=== PATIENT | female | born 1930 | race Caucasian/White ===

== ENCOUNTER 2018-11-29 09:33 | Emergency (ER) | payer MEDICARE, OTHER ==
[~2018-11-29] VITALS: Ht 162.6 cm; Wt 59.0 kg
[~2018-11-29 09:33] MED LIST: ACHD5005 PO; B/P PILL; METFORMIN; OMG1KC PO; VIT D
[2018-11-29] MEDS ORDERED: CHLO473M4 MM (11:25)
--- NOTE | 2018-11-29 11:25 | ED EENT ---
History of Present Illness General Chief Complaint: Oral/Throat Problems Stated Complaint: BUMPS ON INSIDE OF MOUTH Source: patient Exam Limitations: no limitations History of Present Illness Date Seen by Provider: Nov 29, 2018 Time Seen by Provider: 11:20 Initial Comments To ER with "bumps" to the left cheek first noticed yesterday. No known cause but states that she did eat some hot fish 2 days ago and she might have burned it but she doesn't recall that. They're not painful she is just worried about it getting infected Timing/Duration: other (2 days ago) Severity: moderate Location: mouth Associated Symptoms: denies symptoms Allergies and Home Medications Allergies Coded Allergies: No Known Drug Allergies (Unverified , 11/30/11) Home Medications Hydrocodone Bit/Acetaminophen 1 Tab Tablet, 1 TAB PO Q6H FOR PAIN Prescribed by: SIDNEY JAMES on 11/30/112135 [place] 3 Polyunsat Fatty Acids 1,000 Mg Cap, 1,000 MG PO BID, (Reported) Patient Home Medication List Home Medication List Reviewed: Yes Review of Systems Review of Systems Constitutional: see HPI Eyes: No Symptoms Reported Ears: No Symptoms Reported Nose: no symptoms reported Mouth: see HPI Throat: no symptoms reported Respiratory: no symptoms reported Cardiovascular: no symptoms reported Musculoskeletal: no symptoms reported Skin: no symptoms reported Neurological: No Symptoms Reported Past Ninmrrw-Idfict-Ypntyh Hx Patient Social History Recent Foreign Travel: No Contact w/Someone Who Travel: No Immunizations Up To Date Date of Influenza Vaccine: Jul 31, 2011 Physical Exam Height, Weight, BMI Height: '" Weight: lbs. oz. kg; BMI Method: General Appearance: WD/WN, no apparent distress Eyes: bilateral eye normal inspection, bilateral eye PERRL, bilateral eye EOMI Ears: bilateral ear auricle normal, bilateral ear canal normal, bilateral ear TM normal Mouth/Throat: other (vocal mucosa left cheek there is a 1 x 1 cm area of thickened macerated-appearing tissue. Differential would include an injury from having bitten this area, she states that she did eat some fish yesterday that was very hot and perhaps she burned, and oral cancer would also be a possibility. There is no swelling to the cheek and I do not have concerns about parotitis or sialolithiasis) Neck: non-tender, full range of motion Respiratory: normal breath sounds, no respiratory distress, no accessory muscle use Neurologic/Psychiatric: alert, normal mood/affect, oriented x 3 Departure Impression Primary Impression: Oral mucosal lesion Disposition: HOME, SELF-CARE Condition: Stable Departure-Patient Inst. Decision time for Depature: 11:23 Referrals: HARRISON ROSEN DO (PCP/Family) Primary Care Physician Patient Instructions: General (DC) Add. Discharge Instructions: 1. Call your dentist on Saturday to make an appointment to be seen for follow-up. If this does not improve and go away then he will need to have this biopsied to make sure this is not an oral cancer. In the meantime, use the antiseptic mouthwash. I tried to call [facility] pharmacy that they are closed on the weekends. So , I sent your prescription to [facility] where you can pick it up this weekend. All discharge instructions reviewed with patient and/or family. Voiced understanding. Scripts Chlorhexidine Gluconate (Peridex) 473 Ml Mouthwash 30 ML MM BID, #473 ML Prov: BRAYEDN GOLD APRN 11/29/18 Copy Copies To 1: HARRISON ROSEN PETER J APRN Nov 29, 2018 11:25
[2018-11-29 11:35] VITALS: BP 146/95
--- OUTSIDE RECORDS SUMMARY | 2018-11-30 12:34 | XMS REPORT | Clinical Summary ---
Author Author User, [employer] Organization [facility] [place] Address Unknown Phone Unavailable Allergies, Adverse Reactions, Alerts Allergy Name Reaction Description Start Date Severity Status Provider No Known Allergies [place] Conditions or Problems Problem Name Problem Code Onset Date Status Entry Date Provider Comment Standard Description Annotate HYPERCHOLESTEROLEMIA 272.0 Active Altagracia Curtis Pure hypercholesterolemia diet-controlled HYPERTENSION 401.1 Active Altagracia Curtis Benign essential hypertension OBESITY 278.00 Resolved Altagracia Curtis Obesity, unspecified DIABETES MELLITUS, TYPE II, CONTROLLED 250.00 Active Altagracia Curtis Diabetes mellitus without mention of complication, type II or unspecified type, not stated as uncontrolled diet-controlled CATARACT EXTRACTIONS, BILATERAL, HX OF V45.61 Resolved Altagracia Curtis Postsurgical cataract extraction status URTICARIA, CHRONIC 708.8 Resolved Altagracia Curtis Other specified urticaria COUGH 786.2 Resolved Altagracia Curtis Cough RHINITIS 472.0 Resolved Altagracia Curtis Chronic rhinitis OTORRHEA NEC 388.69 Resolved Altagracia Curtis Other otorrhea EAR PAIN, BILATERAL 388.70 Resolved Altagracia Curtis Otalgia, unspecified OTITIS EXTERNA 380.10 Resolved Altagracia Curtis Infective otitis externa, unspecified CELLULITIS 682.9 Resolved Altagracia Curtis Cellulitis and abscess of unspecified sites mons pubis DERMATOPHYTOSIS, SITE NOS 110.9 Resolved Altagracia Curtis Dermatophytosis of unspecified site BREAST PAIN, RIGHT 611.71 Resolved Altagracia Curtis Mastodynia SLEEP APNEA, OBSTRUCTIVE 780.57 Active Altagracia Curtis Unspecified sleep apnea BRONCHITIS 490 Resolved Altagracia Curtis Bronchitis, not specified as acute or chronic SINUSITIS, ACUTE SPHENOIDAL 461.3 Resolved Altagracia Curtis Acute sphenoidal sinusitis PYELONEPHRITIS 590.80 Resolved Altagracia Curtis Pyelonephritis, unspecified VAGINITIS, ATROPHIC 627.3 Resolved Altagracia Curtis Postmenopausal atrophic vaginitis UNSPECIFIED VITAMIN D DEFICIENCY 268.9 Active Altagracia Curtis Unspecified vitamin D deficiency Medication List Medication Instructions Start Date Stop Date Generic Name NDC Status Provider Patient Instruction YUE 60 MG CAPS 1 PO daily ORLISTAT 12344554336 Active Altagracia Curtis DIALYVITE VITAMIN D 5000 5000 UNIT CAPS 1 po BID CHOLECALCIFEROL 16951000309 Active Altagracia Curtis TRIAMCINOLONE ACETONIDE 0.1 % CREA apply BID TRIAMCINOLONE ACETONIDE (TOP) 28585826848 Active Altagracia Curtis KENALOG 0.1 % CREA apply to affected areas BID TRIAMCINOLONE ACETONIDE No Longer Active Altagracia Curtis KENALOG 0.1 % CREA apply sparingly to affected areas on skin as needed. 08/14 TRIAMCINOLONE ACETONIDE No Longer Active Altagracia Curtis PREMARIN 0.625 MG/GM CREA Apply as directed. ESTROGENS, CONJUGATED VAGINAL 84089569606 Active Altagracia Curtis VITAMIN D (ERGOCALCIFEROL) 5000 UNIT CAPS (ERGOCALCIFEROL) 1 PO BID VITAMIN D (ERGOCALCIFEROL) 5000 UNIT CAPS (ERGOCALCIFEROL) No Longer Active Altagraciaerich Curtis BIOTIN FORTE TABS BIOTIN TABS 74145819554 No Longer Active Altagracia Gretchen Curtis CLARITIN 10 MG TABS 1 po BID prn LORATADINE 45565288531 Active Altagracia Gretchen Curtis ZOSTAVAX 89060 UNT/0.65ML SOLR 1 injection once ZOSTER VACCINE LIVE 50460168576 No Longer Active Altagracia Gretchen Curtis VITAMIN D (ERGOCALCIFEROL) 22068 UNIT CAPS 1 PO daily ERGOCALCIFEROL 28094516722 No Longer Active Altagraciaerich Curtis VITAMIN D 1000 UNIT TABS 1 PO TID CHOLECALCIFEROL 42598143674 No Longer Active Altagraciaerich Curtis SULFACETAMIDE-PREDNISOLONE 10-0.23 % SOLN Apply as directed as needed SULFACETAMIDE-PREDNISOLONE 86904748083 No Longer Active Altagracia Gretchen Curtis QUALAQUIN 324 MG CAPS 1 PO QHS prn QUININE SULFATE 50088471588 Active Altagracia Gretchen Curtis PREMARIN 0.625 MG/GM CREA 1 gm intavaginally HS 3 times a week. ESTROGENS, CONJUGATED VAGINAL 62561897631 No Longer Active Altagraciaerich Curtis FISH OIL 1000 MG CAPS 1 PO BID OMEGA-3 FATTY ACIDS 98599333619 Active Altagracia Gretchen Curtis LUCIEN 180 MG TABS 1 PO QD for sinus drainage FEXOFENADINE HCL 94922017976 No Longer Active Altagracia Gretchen Curtis YUE 1 PO TID YUE No Longer Active Altagraciaerich Curtis AMOXICILLIN 500 MG CAP 1 PO TID for seven days AMOXICILLIN 71348885740 No Longer Active Altagracia Gretchen Curtis QUININE SULFATE 260 MG TABS 1 PO QHS prn QUININE SULFATE 65228093783 No Longer Active Altagracia Gretchen Curtis ROBITUSSIN A-C 10-100 MG/5ML SYRUP 5cc PO Q 4-6 hr prn ROBITUSSIN A-C 10-100 MG/5ML SYRUP 16393280684 No Longer Active Altagracia Gretchen Curtis ZITHROMAX Z-DOMINIC 250 MG TABS as directed AZITHROMYCIN 02442287638 No Longer Active Altagracia Gretchen Curtis NAFTIN 1 % CREA APPLY TO AFFECTED AREAS BID FOR 7 DAYS NAFTIFINE HCL 06780555282 No Longer Active Altagracia Gretchen Curtis METFORMIN HCL 500 MG TABS 1 PO daily in morning for diabetes METFORMIN HCL 79405862297 Active Altagracia Gretchen Curtis LOTRISONE 1-0.05 % CREA apply to affected areas under arms BID for 7 days CLOTRIMAZOLE-BETAMETHASONE 32847202463 No Longer Active Altagracia Gretchen Curtis ATROVENT 0.03 % SOLN 2 puffs BID IPRATROPIUM BROMIDE 86343512534 No Longer Active Altagracia Gretchen Curtis HYDROXYZINE HCL 25 MG/ML SOLN 1 tab po prn HYDROXYZINE HCL 47204063653 No Longer Active Altagracia Gretchen Curtis MULTIVITAMINS TABS 1 po daily MULTIPLE VITAMIN 42374838168 No Longer Active Altagracia Gretchen Curtis HYDROCHLOROTHIAZIDE 12.5 MG CAPS 1 PO QD HYDROCHLOROTHIAZIDE 57463265879 Active Altagracia Gretchen Curtis NORVASC 5 MG TAB 1 PO QD AMLODIPINE BESYLATE 18031911857 No Longer Active Altagracia Gretchen Curtis CHLORPHENIRAMINE MALEATE 4 MG TABS 1 po q 4-6h prn CHLORPHENIRAMINE MALEATE 03455177961 No Longer Active Altagracia Gretchen Curtis ZITHROMAX Z-DOMINIC 250 MG TABS 2 po X 1 day, 1 po X 4 days AZITHROMYCIN 36795125849 No Longer Active Altagracia Gretchen Curtis ASPIRIN 81 MG TAB 1 PO daily ASPIRIN 11251209362 Active Altagraciaerich Curtis ZITHROMAX Z-DOMINIC 250 MG TABS 1 PO QD AZITHROMYCIN 48448791783 No Longer Active Altagracia Gretchen Curtis KENALOG 0.1 % CREA Apply to outside of ears sparingly bid x 7days TRIAMCINOLONE ACETONIDE (TOP) 93431038708 No Longer Active Altagraciaerich Curtis ALLERGY MEDICINE COMPLETE 25 MG CAPS prn DIPHENHYDRAMINE HCL 40818303196 No Longer Active Altagraciaerich Curtis NAPROXEN SODIUM 220 MG TABS 2 tabs prn NAPROXEN SODIUM 64756173585 No Longer Active Altagraciaerich Curtis PEDIOTIC 3.5-58254-0 SUSP Apply tid to bilateral ears x 7days [id number] (OTIC) 55610180184 No Longer Active Altagraciaerich Curtis COLACE ADULT 3 GM SUPP 3 gtts. each ear BID starting 06-19-04 GLYCERIN (LAXATIVE) 68126566200 No Longer Active Altagracia Curtis ATROVENT 0.03 % SOLUTION 2 puffs Qnostril BID prn runny nose 2003 IPRATROPIUM BROMIDE 63554550606 No Longer Active Altagraciaerich Curtis LOTRIMIN AF 1 % SOLN 2 drops each ear TID, alternate with pediotic drops. CLOTRIMAZOLE 05324995295 No Longer Active Altagraciaerich Curtis FLOXIN OTIC 0.3 % SOLN 10 drops BL ears BID OFLOXACIN 17086544618 No Longer Active Altagraciaerich Curtis LIPITOR 20 MG TABS 1 po daily ATORVASTATIN CALCIUM 91857659237 Active Altagracia Gretchen Curtis ROBITUSSIN A-C 10-100 MG/5ML SYRUP 5cc PO Q 4-6 hr prn ROBITUSSIN A-C 10-100 MG/5ML SYRUP 97880745019 No Longer Active Altagracia Curtis LIPITOR 20 MG TAB 1 PO QD ATORVASTATIN CALCIUM 20937020789 No Longer Active Altagracia Curtis ROBITUSSIN A-C 10-100 MG/5ML SYRUP 5cc PO Q 4-6 hr prn ROBITUSSIN A-C 10-100 MG/5ML SYRUP 53945307392 No Longer Active Altagracia Curtis LISINOPRIL 20 MG TABS 1 po daily LISINOPRIL 94861151534 Active Altagracia Godinez Curtis Immunizations Vaccine Administration Date Value Standard Description Influenza vaccine given done influenza virus vaccine, unspecified formulation Influenza vaccine given done influenza virus vaccine, unspecified formulation Influenza vaccine given Done influenza virus vaccine, unspecified formulation dT (Diphtheria and Tetanus) booster given 04/07 Td(adult) unspecified formulation Influenza vaccine given administered influenza virus vaccine, unspecified formulation pneumococcal immunization administered 2002 pneumococcal polysaccharide vaccine, 23 valent Comvax, combined Hemophilus influenza B and Hepatitis B virus vaccine [facility] 07/11/06 Haemophilus influenzae type b conjugate and Hepatitis B vaccine Vital Signs Date Name Value Unit Range Description blood pressure, diastolic - 8462-4 60 mm[Hg] BP thomas blood pressure, systolic - 8480-6 108 mm[Hg] BP sys pulse rate E&M - 8867-4 68 /min Heart rate respiratory rate E&M - 9279-1 14 /min Resp rate weight E&M - 3141-9 141 [lb_av] Weight Measured blood pressure, diastolic - 8462-4 60 mm[Hg] BP thomas blood pressure, systolic - 8480-6 110 mm[Hg] BP sys pulse rate E&M - 8867-4 80 /min Heart rate respiratory rate E&M - 9279-1 14 /min Resp rate weight E&M - 3141-9 145 [lb_av] Weight Measured Diagnostic Results Date Name Value Unit Range Description Clinical Lists Update: CBC,CMP,FLP,HGA1C - Chemistry Estimated Glomerular Filtration Rate (calc) 53.0 mL/min/1.73m2 albumin, serum 4.0 g/dL alkaline phosphatase, serum 59 U/L urea nitrogen, blood 19 mg/dL calcium, serum 9.5 mg/dL chloride, serum 105 mmol/L cholesterol, serum 109 mg/dL carbon dioxide, venous blood 25 mmol/L creatinine, serum 1.17 mg/dL HDL cholesterol, serum 75 mg/dL hemoglobin A1C, blood, as % of total hemoglobin 5.6 % LDL cholesterol, serum 34 mg/dL potassium, serum 4.1 mmol/L protein, total, serum 6.3 g/dL aspartate aminotransferase (SGOT), serum 17 U/L alanine aminotransferase (SGPT), serum 10 U/L bilirubin, serum, total 0.4 mg/dL triglyceride, serum, fasting 119 mg/dL sodium, serum 134 mmol/L anion gap, serum 4 cholesterol/HDL ratio, serum, percent 3.21 glucose, plasma fasting 96 mg/dL Clinical Lists Update: CBC,CMP,FLP,TSH,HgA1c - Chemistry LDL cholesterol, serum 69 mg/dL Estimated Glomerular Filtration Rate (calc) 57.0 mL/min/1.73m2 cholesterol, serum 133 mg/dL potassium, serum 4.1 mmol/L alkaline phosphatase, serum 81 U/L protein, total, serum 6.8 g/dL carbon dioxide, venous blood 27 mmol/L aspartate aminotransferase (SGOT), serum 16 U/L calcium, serum 9.9 mg/dL alanine aminotransferase (SGPT), serum 13 U/L creatinine, serum 1.11 mg/dL bilirubin, serum, total 0.4 mg/dL albumin, serum 4.3 g/dL triglyceride, serum, fasting 121 mg/dL HDL cholesterol, serum 40 mg/dL sodium, serum 139 mmol/L chloride, serum 106 mmol/L anion gap, serum 6 hemoglobin A1C, blood, as % of total hemoglobin 5.6 % cholesterol/HDL ratio, serum, percent 3.33 thyroid stimulating hormone, serum 2.422 u[iU]/mL glucose, plasma fasting 103 mg/dL urea nitrogen, blood 19 mg/dL Clinical Lists Update: CBC,CMP,FLP,TSH,HgA1c - Urinalysis microalbumin, urine, semiquantitative 4.3 mg/dL Lab Report: A1C HPLC - Chemistry hemoglobin A1C, blood, as % of total hemoglobin 5.6 % 4.0-5.6 hemoglobin A1C, blood, as % of total hemoglobin 5.6 % 4.0-5.6 Lab Report: CBC - Chemistry lymphocytes, absolute, manual 1.49 10E9/L {Cells}/uL 1.00-4.00 polymorphonuclear neutrophils, absolute, manual 4.02 10E9/L { Cells}/uL 1.80-7.80 mean corpuscular hemoglobin concentration, rbc 33.4 g/dL 30.9- 34.7 monocytes, absolute, manual 0.50 10E9/L {Cells}/uL 0.20-1.00 basophils, absolute, manual 0.03 10E9/L {Cells}/uL 0.00-0.20 eosinophils, absolute, manual 0.25 10E9/L {Cells}/uL 0.00-0.45 Lab Report: CBC - Hematology hemoglobin, blood 12.2 g/dL 11.6-15.9 mean corpuscular volume, RBC 90.8 fL 83.2-100.5 eosinophils as percent of blood leukocytes 4.0 % mean corpuscular hemoglobin, RBC 30.3 pg 26.8-33.3 monocytes as percent of blood leukocytes 8.0 % hematocrit, blood 36.5 % 35.7-47.8 lymphocytes as percent of blood leukocytes, manual count 23.7 % neutrophil count, CSF 63.8 % basophils as percent of blood leukocytes, automated count 0.5 % platelet count 215 047-785 0982/09/09 mean platelet volume 11.0 fL 9.5-12.9 Lab Report: CHEM 14 - Chemistry aspartate aminotransferase (SGOT), serum 17 U/L 0-40 potassium, serum 4.1 mmol/L 3.5-5.5 potassium, serum 4.1 mmol/L 3.5-5.5 protein total, urine 6.8 GM/DL 6.1-8.2 calcium, serum 9.9 mg/dL 8.5-10.5 calcium, serum 9.5 mg/dL 8.5-10.5 urea nitrogen, blood 19 mg/dL 5- urea nitrogen, blood 19 mg/dL 5- blood glucose, random 103 mg/dL 70-100 blood glucose, random 96 mg/dL 70-100 alkaline phosphatase, serum 81 U/L 40-132 alkaline phosphatase, serum 59 U/L 40-132 albumin, serum 4.3 g/dL 3.7-4.7 albumin, serum 4.0 g/dL 3.7-4.7 aspartate aminotransferase (SGOT), serum 16 U/L 0-40 alanine aminotransferase (SGPT), serum 10 U/L 0-30 alanine aminotransferase (SGPT), serum 13 U/L 0-30 bilirubin, serum, total 0.4 mg/dL 0.1-1.0 bilirubin, serum, total 0.4 mg/dL 0.1-1.0 sodium, serum 134 mmol/L 470-122 3859/09/09 sodium, serum 139 mmol/L 091-403 5140/03/13 chloride, blood 105 mmol/L 96-108 chloride, blood 106 mmol/L 96-108 protein total, urine 6.3 GM/DL 6.1-8.2 bicarbonate, serum 27 mmol/L 18-30 bicarbonate, serum 25 mmol/L 18-30 Lab Report: CHEM 14 - Lab CREATININE 1.11 0.50-1.50 CREATININE 1.17 0.50-1.50 Lab Report: LIPID GRP - Chemistry HDL cholesterol, serum 40 mg/dL 40-125 cholesterol, serum 109 mg/dL 392-693 1190/09/09 cholesterol, serum 133 mg/dL 659-525 5447/03/13 HDL cholesterol, serum 34 mg/dL 40-125 triglyceride, serum, random 121 mg/dL 30-150 triglyceride, serum, random 119 mg/dL 30-150 Lab Report: MICRALUR - Chemistry creatinine, 24 hr specimen, urine 60 mg/dL Lab Report: MICRALUR - Urinalysis microalbumin, random, urine 4.3 ug/mL 0.0-20.0 microalbumin/creatinine ratio, urine 7.3 MG/GCR mg/g 0.0-24.9 Lab Report: TSH - Chemistry thyroid stimulating hormone, serum 2.422 u[iU]/mL 0.300-5.000 Encounters Code Encounter Date Provider Facility CPT-50161 Ofc Vst, Est Level III 17:22:43 HAKANT Altagracia Curtis DO, FACP CPT-31546 Ofc Vst, Est Level III 21:06:52 CDT Altagracia Gretchen Hidalgo Curtis, DO, FACP CPT-29677 Ofc Vst, Est Level III 13:18:20 CDT Altagracia Gretchen Hidalgo Curtis, DO, FACP CPT-60895 Ofc Vst, Est Level IV 10:24:29 [employer]ADDLE [employer] [place] Gretchen Hidalgo Curtis, DO, FACP CPT-14106 Ofc Vst, Est Level IV 10:26:18 CDT Altagracia Gretchen Hidalgo Kirsten, DO, FACP CPT-18213 Ofc Vst, Est Level IV 10:35:37 CDT Altagracia Hidalgo Kirsten, DO, FACP CPT-93878 Ofc Vst, Est Level IV 10:04:20 SADDLE MAKER Altagraciaerich Hidalgo Kirsten, DO, FACP CPT-97923 Ofc Vst, Est Level III 10:53:00 CDT Altagracia Gretchen Hidalgo Kirsten, DO, FACP CPT-27544 Ofc Vst, Est Level IV 10:46:01 CDT Altagraciaerich Hidalgo Curtis, DO, FACP CPT-24379 Ofc Vst, Est Level IV 10:09:53 CDT Altagraciaerich Hidalgo Kirsten, DO, FACP CPT-87691 Ofc Vst, Est Level IV 09:41:45 SADDLE MAKER Altagracia Hidalgo Curtis, DO, FACP CPT-26510 Ofc Vst, Est Level IV 09:47:44 SADDLE MAKER Altagracia Hidalgo Curtis, DO, FACP CPT-09200 Ofc Vst, Est Level IV 09:30:07 CDT Altagracia Gretchen Hidalgo Kirsten, DO, FACP CPT-48724 Ofc Vst, Est Level IV 09:32:54 CDT Altagracia Gretchen Barnesner Altagracia Hidalgo Kirsten, DO, FACP CPT-41585 Ofc Vst, Est Level IV 09:18:37 SADDLE MAKER Altagraciaerich Hidalgo Kirsten, DO, FACP CPT-71899 Ofc Vst, Est Level IV 18:10:48 CDT Altagracia Gretchen Barnesner Altagracia Hidalgo Kirsten, DO, FACP CPT-55355 Ofc Vst, Est Level IV 09:28:24 CDT Altagracia Gretchen Barnesner Altagracia Gwen Kirsten, DO, FACP CPT-29699 Ofc Vst, Est Level IV 09:21:14 CDT Altagracia Gretchen Barnesner Altagracia Hidalgo Kirsten, DO, FACP CPT-77191 Ofc Vst, Est Level IV 09:26:33 SADDLE MAKER Altagracia Gretchen Kirsten Altagracia Hidalgo Kirsten, DO, FACP CPT-57255 Ofc Vst, Est Level III 10:53:25 SADDLE MAKER Altagracia Gretchen Curtis Altagracia Gwen Kirsten, DO, FACP CPT-01377 Ofc Vst, Est Level IV 09:44:53 CDT Altagracia Gretchen Barnesner Altagracia Gwen Kirsten, DO, FACP CPT-92204 Ofc Vst, Est Level IV 10:32:41 CDT Altagracia Gretchen Kirsten Altagraciaerich Curtis, DO, FACP CPT-77632 Ofc Vst, Est Level IV 10:29:10 CDT Altagraciaerich Curtis [facility] [place] CPT-15119 Ofc Vst, Est Level III 14:16:27 CDT Altagracia Curtis [facility] [place] CPT-73408 Ofc Vst, Est Level IV 09:44:19 SADDLE MAKER Altagracia Curtis [facility] [place] CPT-46765 Ofc Vst, Est Level IV 10:04:08 CDT Altagraciaerich Curtis [facility] [place] CPT-71271 Ofc Vst, Est Level V 10:07:33 CDT Altagracia Gretchen Curtis [facility] [place] CPT-93366 Ofc Vst, Est Level IV 09:40:48 CDT Altagracia Gretchen Curtis [facility] [place] CPT-37029 Ofc Vst, Est Level IV 09:22:54 SADDLE MAKER Altagracia Gretchen Curtis [facility] [place] CPT-25678 Ofc Vst, Est Level II 13:41:04 CDT Altagracia Gretchen Curtis [facility] [place] CPT-97966 Ofc Vst, Est Level IV 09:30:47 CDT Altagracia Gretchen Curtis [facility] [place] CPT-98231 Ofc Vst, Est Level IV 09:46:53 CDT Altagracia Gretchen Curtis [facility] [place] CPT-58490 Ofc Vst, Est Level IV 19:17:23 SADDLE MAKER Altagracia Curtis [facility] [place] CPT-86971 Ofc Vst, Est Level IV 12:54:11 SADDLE MAKER Altagracia Curtis [facility] [place] CPT-26691 Ofc Vst, Est Level IV 18:43:33 CDT Altagracia Gretchen Curtis [facility] [place] CPT-62939 Ofc Vst, Est Level III 12:15:26 CDT Altagracia Gretchen Curtis [facility] [place] CPT-95828 Ofc Vst, Est Level III 11:56:15 SADDLE MAKER Altagracia Curtis [facility] [place] CPT-28973 Ofc Vst, Est Level III 15:33:37 SADDLE MAKER Altagracia Curtis [facility] [place] CPT-81970 Ofc Vst, New Level III 11:21:25 SADDLE MAKER Altagracia Curtis [facility] [place] Procedures Code Procedure Name Date Entry Date Standard Description CPT-G0439 Medicare Annual Wellness Visit 16:08:58 CDT CPT-G8446 E-Prescribing not done due to controlled substance 21:06 :52 CDT CPT-G8446 E-Prescribing not done due to controlled substance 13:19 :45 CDT CPT-G0439 Medicare Annual Wellness Visit 13:19:45 CDT CPT-G8446 E-Prescribing not done due to controlled substance 13:18 :20 CDT CPT-G0439 Medicare Annual Wellness Visit 10:53:22 CDT CPT-40019 Ear Wax Removal 18:43:33 CDT
--- OUTSIDE RECORDS SUMMARY | 2018-11-30 12:34 | XMS REPORT | Clinical Summary ---
Author Author User, [facility] Organization [facility] [place] Address Unknown Phone Unavailable Allergies, Adverse Reactions, Alerts Allergy Name Reaction Description Start Date Severity Status Provider No Known Allergies [place] Conditions or Problems Problem Name Problem [...] 60 MG CAPS 1 PO daily ORLISTAT 66707010375 Active Altagracia Curtis DIALYVITE VITAMIN D 5000 5000 UNIT CAPS 1 po BID CHOLECALCIFEROL 17021479294 Active Altagracia Curtis TRIAMCINOLONE ACETONIDE 0.1 % CREA apply BID TRIAMCINOLONE ACETONIDE (TOP) 77186765034 Active Altagracia Curtis KENALOG 0.1 % CREA apply to affected areas BID TRIAMCINOLONE ACETONIDE No Longer Active Altagracia Curtis KENALOG 0.1 % CREA apply sparingly to affected areas on skin as needed. 08/14 TRIAMCINOLONE ACETONIDE No Longer Active Altagracia Curtis PREMARIN 0.625 MG/GM CREA Apply as directed. ESTROGENS, CONJUGATED VAGINAL [id number] Active Altagracia Curtis VITAMIN D (ERGOCALCIFEROL) 5000 UNIT CAPS (ERGOCALCIFEROL) 1 PO BID VITAMIN D (ERGOCALCIFEROL) 5000 UNIT CAPS (ERGOCALCIFEROL) No Longer Active Altagraciaerich Curtis BIOTIN FORTE TABS BIOTIN TABS 14863934676 No Longer Active Altagracia Gretchen Curtis CLARITIN 10 MG TABS 1 po BID prn LORATADINE 06545538327 Active Altagracia Gretchen Curtis ZOSTAVAX 28948 UNT/0.65ML SOLR 1 injection once ZOSTER VACCINE LIVE 07252365268 No Longer Active Altagracia Gretchen Curtis VITAMIN D (ERGOCALCIFEROL) 26048 UNIT CAPS 1 PO daily ERGOCALCIFEROL 66581146887 No Longer Active Altagraciaerich Curtis VITAMIN D 1000 UNIT TABS 1 PO TID CHOLECALCIFEROL 25931696333 No Longer Active Altagraciaerich Curtis SULFACETAMIDE-PREDNISOLONE 10-0.23 % SOLN Apply as directed as needed SULFACETAMIDE-PREDNISOLONE 84949686123 No Longer Active Altagracia Gretchen Curtis QUALAQUIN 324 MG CAPS 1 PO QHS prn QUININE SULFATE 30895558254 Active Altagracia Gretchen Curtis PREMARIN 0.625 MG/GM CREA 1 gm intavaginally HS 3 times a week. ESTROGENS, CONJUGATED VAGINAL 70913713757 No Longer Active Altagraciaerich Curtis FISH OIL 1000 MG CAPS 1 PO BID OMEGA-3 FATTY ACIDS 41654274666 Active Altagracia Gretchen Curtis LUCIEN 180 MG TABS 1 PO QD for sinus drainage FEXOFENADINE HCL 11370698881 No Longer Active Altagracia Gretchen Curtis YUE 1 PO TID YUE No Longer Active Altagraciaerich Curtis AMOXICILLIN 500 MG CAP 1 PO TID for seven days AMOXICILLIN 22324885282 No Longer Active Altagracia Gretchen Curtis QUININE SULFATE 260 MG TABS 1 PO QHS prn QUININE SULFATE 15159144777 No Longer Active Altagracia Gretchen Curtis ROBITUSSIN A-C 10-100 MG/5ML SYRUP 5cc PO Q 4-6 hr prn ROBITUSSIN A-C 10-100 MG/5ML SYRUP 08564667583 No Longer Active Altagracia Gretchen Curtis ZITHROMAX Z-DOMINIC 250 MG TABS as directed AZITHROMYCIN 01721472878 No Longer Active Altagracia Gretchen Curtis NAFTIN 1 % CREA APPLY TO AFFECTED AREAS BID FOR 7 DAYS NAFTIFINE HCL 61727070032 No Longer Active Altagracia Gretchen Curtis METFORMIN HCL 500 MG TABS 1 PO daily in morning for diabetes METFORMIN HCL 52735380084 Active Altagracia Gretchen Curtis LOTRISONE 1-0.05 % CREA apply to affected areas under arms BID for 7 days CLOTRIMAZOLE-BETAMETHASONE 20468574509 No Longer Active Altagracia Gretchen Curtis ATROVENT 0.03 % SOLN 2 puffs BID IPRATROPIUM BROMIDE 62329122619 No Longer Active Altagracia Gretchen Curtis HYDROXYZINE HCL 25 MG/ML SOLN 1 tab po prn HYDROXYZINE HCL 09460676589 No Longer Active Altagracia Gretchen Curtis MULTIVITAMINS TABS 1 po daily MULTIPLE VITAMIN 19130140244 No Longer Active Altagracia Gretchen Curtis HYDROCHLOROTHIAZIDE 12.5 MG CAPS 1 PO QD HYDROCHLOROTHIAZIDE 91581813738 Active Altagracia Gretchen Curtis NORVASC 5 MG TAB 1 PO QD AMLODIPINE BESYLATE 75780343008 No Longer Active Altagracia Gretchen Curtis CHLORPHENIRAMINE MALEATE 4 MG TABS 1 po q 4-6h prn CHLORPHENIRAMINE MALEATE 81390743100 No Longer Active Altagracia Gretchen Curtis ZITHROMAX Z-DOMINIC 250 MG TABS 2 po X 1 day, 1 po X 4 days AZITHROMYCIN 40570623117 No Longer Active Altagracia Gretchen Curtis ASPIRIN 81 MG TAB 1 PO daily ASPIRIN 66459190342 Active Altagraciaerich Curtis ZITHROMAX Z-DOMINIC 250 MG TABS 1 PO QD AZITHROMYCIN 37526714668 No Longer Active Altagracia Gretchen Curtis KENALOG 0.1 % CREA Apply to outside of ears sparingly bid x 7days TRIAMCINOLONE ACETONIDE (TOP) 28014979983 No Longer Active Altagraciaerich Curtis ALLERGY MEDICINE COMPLETE 25 MG CAPS prn DIPHENHYDRAMINE HCL 83844632266 No Longer Active Altagraciaerich Curtis NAPROXEN SODIUM 220 MG TABS 2 tabs prn NAPROXEN SODIUM 40705813718 No Longer Active Altagraciaerich Curtis PEDIOTIC 3.5-44786-0 SUSP Apply tid to bilateral ears x 7days [id number] (OTIC) 24287113036 No Longer Active Altagraciaerich Curtis COLACE ADULT 3 GM SUPP 3 gtts. each ear BID starting 06-19-04 GLYCERIN (LAXATIVE) 49166938395 No Longer Active Altagracia Curtis ATROVENT 0.03 % SOLUTION 2 puffs Qnostril BID prn runny nose 2003 IPRATROPIUM BROMIDE 41214944390 No Longer Active Altagraciaerich Curtis LOTRIMIN AF 1 % SOLN 2 drops each ear TID, alternate with pediotic drops. CLOTRIMAZOLE 26298048819 No Longer Active Altagraciaerich Curtis FLOXIN OTIC 0.3 % SOLN 10 drops BL ears BID OFLOXACIN 46672765864 No Longer Active Altagraciaerich Curtis LIPITOR 20 MG TABS 1 po daily ATORVASTATIN CALCIUM 86094373449 Active Altagracia Gretchen Curtis ROBITUSSIN A-C 10-100 MG/5ML SYRUP 5cc PO Q 4-6 hr prn ROBITUSSIN A-C 10-100 MG/5ML SYRUP 36278703315 No Longer Active Altagracia Curtis LIPITOR 20 MG TAB 1 PO QD ATORVASTATIN CALCIUM 40236484124 No Longer Active Altagracia Curtis ROBITUSSIN A-C 10-100 MG/5ML SYRUP 5cc PO Q 4-6 hr prn ROBITUSSIN A-C 10-100 MG/5ML SYRUP 05291472326 No Longer Active Altagracia Curtis LISINOPRIL 20 MG TABS 1 po daily LISINOPRIL 59649721765 Active Altagracia Godinez Curtis Immunizations Vaccine Administration [...] influenza B and Hepatitis B virus vaccine [facility] 07/11/06 Haemophilus influenzae type b conjugate [...] automated count 0.5 % platelet count 215 703-082 7902/09/09 mean platelet volume 11.0 fL 9.5-12.9 Lab [...] 0.4 mg/dL 0.1-1.0 sodium, serum 134 mmol/L 871-518 9862/09/09 sodium, serum 139 mmol/L 695-865 8573/03/13 chloride, blood 105 mmol/L 96-108 chloride, blood 106 mmol/L 96-108 protein total, urine 6.3 GM/DL 6.1-8.2 bicarbonate, serum 27 mmol/L 18-30 bicarbonate, serum 25 mmol/L 18-30 Lab Report: CHEM 14 - Lab CREATININE 1.11 0.50-1.50 CREATININE 1.17 0.50-1.50 Lab Report: LIPID GRP - Chemistry HDL cholesterol, serum 40 mg/dL 40-125 cholesterol, serum 109 mg/dL 408-965 2859/09/09 cholesterol, serum 133 mg/dL 289-151 3407/03/13 HDL cholesterol, serum 34 mg/dL 40-125 triglyceride, [...] 0.300-5.000 Encounters Code Encounter Date Provider Facility CPT-05299 Ofc Vst, Est Level III 17:22:43 HAKANT Altagracia Curtis DO, FACP CPT-06065 Ofc Vst, Est Level III 21:06:52 CDT Altagracia Gretchen Hidalgo Curtis, DO, FACP CPT-25213 Ofc Vst, Est Level III 13:18:20 CDT Altagracia Gretchen Hidalgo Curtis, DO, FACP CPT-88464 Ofc Vst, Est Level IV 10:24:29 [employer] Altagracia Gretchen Hidalgo Curtis, DO, FACP CPT-02603 Ofc Vst, Est Level IV 10:26:18 CDT Altagracia Gretchen Hidalgo Kirsten, DO, FACP CPT-90552 Ofc Vst, Est Level IV 10:35:37 CDT Altagracia Hidalgo Kirsten, DO, FACP CPT-17009 Ofc Vst, Est Level IV 10:04:20 [employer] Altagraciaerich Hidalgo Kirsten, DO, FACP CPT-65817 Ofc Vst, Est Level III 10:53:00 CDT Altagracia Gretchen Hidalgo Kirsten, DO, FACP CPT-74984 Ofc Vst, Est Level IV 10:46:01 CDT Altagraciaerich Hidalgo Curtis, DO, FACP CPT-85825 Ofc Vst, Est Level IV 10:09:53 CDT Altagraciaerich Hidalgo Kirsten, DO, FACP CPT-99455 Ofc Vst, Est Level IV 09:41:45 [employer] Altagracia Hidalgo Curtis, DO, FACP CPT-68350 Ofc Vst, Est Level IV 09:47:44 [employer] Altagracia Hidalgo Curtis, DO, FACP CPT-18296 Ofc Vst, Est Level IV 09:30:07 CDT Altagracia Gretchen Hidalgo Kirsten, DO, FACP CPT-64937 Ofc Vst, Est Level IV 09:32:54 CDT Altagracia Gretchen Barnesner Altagracia Hidalgo Kirsten, DO, FACP CPT-83264 Ofc Vst, Est Level IV 09:18:37 [employer] Altagraciaerich Hidalgo Kirsten, DO, FACP CPT-25506 Ofc Vst, Est Level IV 18:10:48 CDT Altagracia Gretchen Barnesner Altagracia Hidalgo Kirsten, DO, FACP CPT-48332 Ofc Vst, Est Level IV 09:28:24 CDT Altagracia Gretchen Barnesner Altagracia Gwen Kirsten, DO, FACP CPT-42300 Ofc Vst, Est Level IV 09:21:14 CDT Altagracia Gretchen Barnesner Altagracia Hidalgo Kirsten, DO, FACP CPT-98109 Ofc Vst, Est Level IV 09:26:33 [employer] Altagracia Gretchen Kirsten Altagracia Hidalgo Kirsten, DO, FACP CPT-19329 Ofc Vst, Est Level III 10:53:25 [employer] Altagracia Gretchen Curtis Altagracia Gwen Kirsten, DO, FACP CPT-47233 Ofc Vst, Est Level IV 09:44:53 CDT Altagracia Gretchen Barnesner Altagracia Gwen Kirsten, DO, FACP CPT-97521 Ofc Vst, Est Level IV 10:32:41 CDT Altagracia Gretchen Kirsten Altagraciaerich Curtis, DO, FACP CPT-78516 Ofc Vst, Est Level IV 10:29:10 CDT Altagraciaerich Curtis [facility] [place] CPT-78632 Ofc Vst, Est Level III 14:16:27 CDT Altagracia Curtis [facility] [place] CPT-75761 Ofc Vst, Est Level IV 09:44:19 [employer] Altagracia Curtis [facility] [place] CPT-30091 Ofc Vst, Est Level IV 10:04:08 CDT Altagraciaerich Curtis [facility] [place] CPT-68378 Ofc Vst, Est Level V 10:07:33 CDT Altagracia Gretchen Curtis [facility] [place] CPT-58123 Ofc Vst, Est Level IV 09:40:48 CDT Altagracia Gretchen Curtis [facility] [place] CPT-32119 Ofc Vst, Est Level IV 09:22:54 [employer] Altagracia Gretchen Curtis [facility] [place] CPT-77164 Ofc Vst, Est Level II 13:41:04 CDT Altagracia Gretchen Curtis [facility] [place] CPT-16490 Ofc Vst, Est Level IV 09:30:47 CDT Altagracia Gretchen Curtis [facility] [place] CPT-46973 Ofc Vst, Est Level IV 09:46:53 CDT Altagracia Gretchen Curtis [facility] [place] CPT-07445 Ofc Vst, Est Level IV 19:17:23 [employer] Altagracia Curtis [facility] [place] CPT-52351 Ofc Vst, Est Level IV 12:54:11 [employer] Altagracia Curtis [facility] [place] CPT-75253 Ofc Vst, Est Level IV 18:43:33 CDT Altagracia Gretchen Curtis [facility] [place] CPT-41908 Ofc Vst, Est Level III 12:15:26 CDT Altagracia Gretchen Curtis [facility] [place] CPT-80922 Ofc Vst, Est Level III 11:56:15 [employer] Altagracia Curtis [facility] [place] CPT-74822 Ofc Vst, Est Level III 15:33:37 [employer] Altagracia Curtis [facility] [place] CPT-52045 Ofc Vst, New Level III 11:21:25 [employer] Altagracia Curtis [facility] [place] Procedures Code Procedure Name Date Entry Date Standard Description CPT-G0439 Medicare Annual Wellness Visit 16:08:58 CDT CPT-G8446 E-Prescribing not done due to controlled substance 21:06 :52 CDT CPT-G8446 E-Prescribing not done due to controlled substance 13:19 :45 CDT CPT-G0439 Medicare Annual Wellness Visit 13:19:45 CDT CPT-G8446 E-Prescribing not done due to controlled substance 13:18 :20 CDT CPT-G0439 Medicare Annual Wellness Visit 10:53:22 CDT CPT-04893 Ear Wax Removal 18:43:33 CDT
--- OUTSIDE RECORDS SUMMARY | 2018-11-30 12:35 | XMS REPORT | Clinical Summary ---
Author Author User, [employer] Organization [facility] [place] Address Unknown Phone Unavailable Allergies, Adverse Reactions, [...] 60 MG CAPS 1 PO daily ORLISTAT 91742999335 Active Altagracia Curtis DIALYVITE VITAMIN D 5000 5000 UNIT CAPS 1 po BID CHOLECALCIFEROL 27602223273 Active Altagracia Curtis TRIAMCINOLONE ACETONIDE 0.1 % CREA apply BID TRIAMCINOLONE ACETONIDE (TOP) 76130189691 Active Altagracia Curtis KENALOG 0.1 % CREA apply to affected areas BID TRIAMCINOLONE ACETONIDE No Longer Active Altagracia uCrtis KENALOG 0.1 % CREA apply sparingly to affected areas on skin as needed. 08/14 TRIAMCINOLONE ACETONIDE No Longer Active Altagracia Curtis PREMARIN 0.625 MG/GM CREA Apply as directed. ESTROGENS, CONJUGATED VAGINAL 14346924859 Active Altagracia Curtis VITAMIN D (ERGOCALCIFEROL) 5000 UNIT CAPS (ERGOCALCIFEROL) 1 PO BID VITAMIN D (ERGOCALCIFEROL) 5000 UNIT CAPS (ERGOCALCIFEROL) No Longer Active Altagraciaerich Curtis BIOTIN FORTE TABS BIOTIN TABS 94438070271 No Longer Active Altagracia Gretchen Curtis CLARITIN 10 MG TABS 1 po BID prn LORATADINE 39019515312 Active Altagracia Gretchen Curtis ZOSTAVAX 70617 UNT/0.65ML SOLR 1 injection once ZOSTER VACCINE LIVE 23078469322 No Longer Active Altagracia Gretchen Curtis VITAMIN D (ERGOCALCIFEROL) 69242 UNIT CAPS 1 PO daily ERGOCALCIFEROL 74103338743 No Longer Active Altagraciaerich Curtis VITAMIN D 1000 UNIT TABS 1 PO TID CHOLECALCIFEROL 09912799837 No Longer Active Altagraciaerich Curtis SULFACETAMIDE-PREDNISOLONE 10-0.23 % SOLN Apply as directed as needed SULFACETAMIDE-PREDNISOLONE 66853894730 No Longer Active Altagracia Gretchen Curtis QUALAQUIN 324 MG CAPS 1 PO QHS prn QUININE SULFATE 74175236394 Active Altagracia Gretchen Curtis PREMARIN 0.625 MG/GM CREA 1 gm intavaginally HS 3 times a week. ESTROGENS, CONJUGATED VAGINAL 27991053820 No Longer Active Altagraciaerich Curtis FISH OIL 1000 MG CAPS 1 PO BID OMEGA-3 FATTY ACIDS 17269259828 Active Altagracia Gretchen Curtis LUCIEN 180 MG TABS 1 PO QD for sinus drainage FEXOFENADINE HCL 54617881213 No Longer Active Altagracia Gretchen Curtis YUE 1 PO TID YUE No Longer Active Altagraciaerich Curtis AMOXICILLIN 500 MG CAP 1 PO TID for seven days AMOXICILLIN 67739472066 No Longer Active Altagracia Gretchen Curtis QUININE SULFATE 260 MG TABS 1 PO QHS prn QUININE SULFATE 72666353900 No Longer Active Altagracia Gretchen Curtis ROBITUSSIN A-C 10-100 MG/5ML SYRUP 5cc PO Q 4-6 hr prn ROBITUSSIN A-C 10-100 MG/5ML SYRUP 70416514120 No Longer Active Altagracia Gretchen Curtis ZITHROMAX Z-DOMINIC 250 MG TABS as directed AZITHROMYCIN 51591482219 No Longer Active Altagracia Gretchen Curtis NAFTIN 1 % CREA APPLY TO AFFECTED AREAS BID FOR 7 DAYS NAFTIFINE HCL 91984932932 No Longer Active Altagracia Gretchen Curtis METFORMIN HCL 500 MG TABS 1 PO daily in morning for diabetes METFORMIN HCL 77488621156 Active Altagracia Gretchen Curtis LOTRISONE 1-0.05 % CREA apply to affected areas under arms BID for 7 days CLOTRIMAZOLE-BETAMETHASONE 92209491369 No Longer Active Altagracia Gretchen Curtis ATROVENT 0.03 % SOLN 2 puffs BID IPRATROPIUM BROMIDE 71404742626 No Longer Active Altagracia Gretchen Curtis HYDROXYZINE HCL 25 MG/ML SOLN 1 tab po prn HYDROXYZINE HCL 50002230435 No Longer Active Altagracia Gretchen Curtis MULTIVITAMINS TABS 1 po daily MULTIPLE VITAMIN 02868805900 No Longer Active Altagracia Gretchen Curtis HYDROCHLOROTHIAZIDE 12.5 MG CAPS 1 PO QD HYDROCHLOROTHIAZIDE 71869844585 Active Altagracia Gretchen Curtis NORVASC 5 MG TAB 1 PO QD AMLODIPINE BESYLATE 12601025781 No Longer Active Altagracia Gretchen Curtis CHLORPHENIRAMINE MALEATE 4 MG TABS 1 po q 4-6h prn CHLORPHENIRAMINE MALEATE 13981612983 No Longer Active Altagracia Gretchen Curtis ZITHROMAX Z-DOMINIC 250 MG TABS 2 po X 1 day, 1 po X 4 days AZITHROMYCIN 24330338468 No Longer Active Altagracia Gretchen Curtis ASPIRIN 81 MG TAB 1 PO daily ASPIRIN 59673324424 Active Altagraciaerich Curtis ZITHROMAX Z-DOMINIC 250 MG TABS 1 PO QD AZITHROMYCIN 58865211774 No Longer Active Altagraica Gretchen Curtis KENALOG 0.1 % CREA Apply to outside of ears sparingly bid x 7days TRIAMCINOLONE ACETONIDE (TOP) 28364869431 No Longer Active Altagraciaerich Curtis ALLERGY MEDICINE COMPLETE 25 MG CAPS prn DIPHENHYDRAMINE HCL 79108377281 No Longer Active Altagraciaerich Curtis NAPROXEN SODIUM 220 MG TABS 2 tabs prn NAPROXEN SODIUM 23776942572 No Longer Active Altagraciaerich Curtis PEDIOTIC 3.5-23562-2 SUSP Apply tid to bilateral ears x 7days [id number] (OTIC) 69806939710 No Longer Active Altagraciaerich Curtis COLACE ADULT 3 GM SUPP 3 gtts. each ear BID starting 06-19-04 GLYCERIN (LAXATIVE) 73058418666 No Longer Active Altagracia Curtis ATROVENT 0.03 % SOLUTION 2 puffs Qnostril BID prn runny nose 2003 IPRATROPIUM BROMIDE 49710342351 No Longer Active Altagraciaerich Curtis LOTRIMIN AF 1 % SOLN 2 drops each ear TID, alternate with pediotic drops. CLOTRIMAZOLE 99238848223 No Longer Active Altagraciaerich Curtis FLOXIN OTIC 0.3 % SOLN 10 drops BL ears BID OFLOXACIN 53592151438 No Longer Active Altagraciaerich Curtis LIPITOR 20 MG TABS 1 po daily ATORVASTATIN CALCIUM 82590110532 Active Altagracia Gretchen Curtis ROBITUSSIN A-C 10-100 MG/5ML SYRUP 5cc PO Q 4-6 hr prn ROBITUSSIN A-C 10-100 MG/5ML SYRUP 61533990864 No Longer Active Altagracia Curtis LIPITOR 20 MG TAB 1 PO QD ATORVASTATIN CALCIUM 59877678154 No Longer Active Altagracia Curtis ROBITUSSIN A-C 10-100 MG/5ML SYRUP 5cc PO Q 4-6 hr prn ROBITUSSIN A-C 10-100 MG/5ML SYRUP 73138754412 No Longer Active Altagracia Curtis LISINOPRIL 20 MG TABS 1 po daily LISINOPRIL 42428948130 Active Altagracia Godinez Curtis Immunizations Vaccine Administration [...] influenza B and Hepatitis B virus vaccine [facility] 07/11/06 Haemophilus influenzae type b conjugate [...] automated count 0.5 % platelet count 215 427-850 2232/09/09 mean platelet volume 11.0 fL 9.5-12.9 Lab [...] 0.4 mg/dL 0.1-1.0 sodium, serum 134 mmol/L 567-300 1722/09/09 sodium, serum 139 mmol/L 275-439 3366/03/13 chloride, blood 105 mmol/L 96-108 chloride, blood 106 mmol/L 96-108 protein total, urine 6.3 GM/DL 6.1-8.2 bicarbonate, serum 27 mmol/L 18-30 bicarbonate, serum 25 mmol/L 18-30 Lab Report: CHEM 14 - Lab CREATININE 1.11 0.50-1.50 CREATININE 1.17 0.50-1.50 Lab Report: LIPID GRP - Chemistry HDL cholesterol, serum 40 mg/dL 40-125 cholesterol, serum 109 mg/dL 949-434 2336/09/09 cholesterol, serum 133 mg/dL 474-510 7526/03/13 HDL cholesterol, serum 34 mg/dL 40-125 triglyceride, [...] 0.300-5.000 Encounters Code Encounter Date Provider Facility CPT-32494 Ofc Vst, Est Level III 17:22:43 HAKANT Altagracia Curtis DO, FACP CPT-41648 Ofc Vst, Est Level III 21:06:52 CDT Altagracia Gretchen Hidalgo Curtis, DO, FACP CPT-94050 Ofc Vst, Est Level III 13:18:20 CDT Altagracia Gretchen Hidalgo Curtis, DO, FACP CPT-71904 Ofc Vst, Est Level IV 10:24:29 [employer]PERVISOR Altagracia Gretchen Hidalgo Curtis, DO, FACP CPT-60503 Ofc Vst, Est Level IV 10:26:18 CDT Altagracia Gretchen Hidalgo Kirsten, DO, FACP CPT-50964 Ofc Vst, Est Level IV 10:35:37 CDT Altagracia Hidalgo Kirsten, DO, FACP CPT-82856 Ofc Vst, Est Level IV 10:04:20 [employer]RIED YE[employer] SUPERVISOR Altagraciaerich Hidalgo Kirsten, DO, FACP CPT-67628 Ofc Vst, Est Level III 10:53:00 CDT Altagracia Gretchen Hidalgo Kirsten, DO, FACP CPT-74499 Ofc Vst, Est Level IV 10:46:01 CDT Altagraciaerich Hidalgo Curtis, DO, FACP CPT-29441 Ofc Vst, Est Level IV 10:09:53 CDT Altagraciaerich Hidalgo Kirsten, DO, FACP CPT-61467 Ofc Vst, Est Level IV 09:41:45 DRIED YE[employer] SUPERVISOR Altagracia Hidalgo Curtis, DO, FACP CPT-87910 Ofc Vst, Est Level IV 09:47:44 [employer]RIED YE[employer] SUPERVISOR Altagracia Hidalgo Curtis, DO, FACP CPT-32804 Ofc Vst, Est Level IV 09:30:07 CDT Altagracia Gretchen Hidalgo Kirsten, DO, FACP CPT-58596 Ofc Vst, Est Level IV 09:32:54 CDT Altagracia Gretchen Barnesner Altagracia Hidalgo Kirsten, DO, FACP CPT-34770 Ofc Vst, Est Level IV 09:18:37 [employer]RIED YE[employer] SUPERVISOR Altagraciaerich Hidalgo Kirsten, DO, FACP CPT-12285 Ofc Vst, Est Level IV 18:10:48 CDT Altagracia Gretchen Barnesner Altagracia Hidalgo Kirsten, DO, FACP CPT-42432 Ofc Vst, Est Level IV 09:28:24 CDT Altagracia Gretchen Barnesner Altagracia Gwen Kirsten, DO, FACP CPT-90301 Ofc Vst, Est Level IV 09:21:14 CDT Altagracia Gretchen Barnesner Altagracia Hidalgo Kirsten, DO, FACP CPT-83509 Ofc Vst, Est Level IV 09:26:33 [employer] YE[employer] SUPERVISOR Altagracia Gretchen Kirsten Altagracia Hidalgo Kirsten, DO, FACP CPT-50789 Ofc Vst, Est Level III 10:53:25 [employer]ED YE[employer] SUPERVISOR Altagracia Gretchen Curtis Altagracia Gwen Kirsten, DO, FACP CPT-63786 Ofc Vst, Est Level IV 09:44:53 CDT Altagracia Gretchen Barnesner Altagracia Gwen Kirsten, DO, FACP CPT-13284 Ofc Vst, Est Level IV 10:32:41 CDT Altagracia Gretchen Kirsten Altagraciaerich Curtis, DO, FACP CPT-18876 Ofc Vst, Est Level IV 10:29:10 CDT Altagraciaerich Curtis [facility] [place] CPT-73208 Ofc Vst, Est Level III 14:16:27 CDT Altagracia Curtis [facility] [place] CPT-77062 Ofc Vst, Est Level IV 09:44:19 [employer] SUPERVISOR Altagracia Curtis [facility] [place] CPT-55062 Ofc Vst, Est Level IV 10:04:08 CDT Altagraciaerich Curtis [facility] [place] CPT-29783 Ofc Vst, Est Level V 10:07:33 CDT Altagracia Gretchen Curtis [facility] [place] CPT-33863 Ofc Vst, Est Level IV 09:40:48 CDT Altagracia Gretchen Curtis [facility] [place] CPT-03335 Ofc Vst, Est Level IV 09:22:54 [employer] SUPERVISOR Altagracia Gretchen Curtis [facility] [place] CPT-04714 Ofc Vst, Est Level II 13:41:04 CDT Altagracia Gretchen Curtis [facility] [place] CPT-91225 Ofc Vst, Est Level IV 09:30:47 CDT Altagracia Gretchen Curtis [facility] [place] CPT-66780 Ofc Vst, Est Level IV 09:46:53 CDT Altagracia Gretchen Curtis [facility] [place] CPT-15621 Ofc Vst, Est Level IV 19:17:23 [employer]RI[employer] YE[employer] SUPERVISOR Altagracia Curtis [facility] [place] CPT-75722 Ofc Vst, Est Level IV 12:54:11 [employer]RI[employer] YE[employer] SUPERVISOR Altagracia Curtis [facility] [place] CPT-06736 Ofc Vst, Est Level IV 18:43:33 CDT Altagracia Gretchen Curtis [facility] [place] CPT-23915 Ofc Vst, Est Level III 12:15:26 CDT Altagracia Gretchen Curtis [facility] [place] CPT-34839 Ofc Vst, Est Level III 11:56:15 [employer] SUPERVISOR Altagracia Curtis [facility] [place] CPT-06459 Ofc Vst, Est Level III 15:33:37 DRI[employer] YE[employer] SUPERVISOR Altagracia Curtis [facility] [place] CPT-20899 Ofc Vst, New Level III 11:21:25 DRIED YE[employer] SUPERVISOR Altagracia Curtis [facility] [place] Procedures Code Procedure Name Date Entry Date Standard Description CPT-G0439 Medicare Annual Wellness Visit 16:08:58 CDT CPT-G8446 E-Prescribing not done due to controlled substance 21:06 :52 CDT CPT-G8446 E-Prescribing not done due to controlled substance 13:19 :45 CDT CPT-G0439 Medicare Annual Wellness Visit 13:19:45 CDT CPT-G8446 E-Prescribing not done due to controlled substance 13:18 :20 CDT CPT-G0439 Medicare Annual Wellness Visit 10:53:22 CDT CPT-92353 Ear Wax Removal 18:43:33 CDT
--- OUTSIDE RECORDS SUMMARY | 2018-11-30 12:35 | XMS REPORT | Clinical Summary ---
Author Author User, [employer] Organization [facility] Physician [place] Address Unknown Phone Unavailable Allergies, Adverse Reactions, [...] 60 MG CAPS 1 PO daily ORLISTAT 61509536245 Active Altagracia Curtis DIALYVITE VITAMIN D 5000 5000 UNIT CAPS 1 po BID CHOLECALCIFEROL 94085264478 Active Altagracia Curtis TRIAMCINOLONE ACETONIDE 0.1 % CREA apply BID TRIAMCINOLONE ACETONIDE (TOP) 49238314724 Active Altagracia Curtis KENALOG 0.1 % CREA apply to affected areas BID TRIAMCINOLONE ACETONIDE No Longer Active Altagracia Curtis KENALOG 0.1 % CREA apply sparingly to affected areas on skin as needed. 08/14 TRIAMCINOLONE ACETONIDE No Longer Active Altagracia Curtis PREMARIN 0.625 MG/GM CREA Apply as directed. ESTROGENS, CONJUGATED VAGINAL 01939900835 Active Altagracia Curtis VITAMIN D (ERGOCALCIFEROL) 5000 UNIT CAPS (ERGOCALCIFEROL) 1 PO BID VITAMIN D (ERGOCALCIFEROL) 5000 UNIT CAPS (ERGOCALCIFEROL) No Longer Active Altagraciaerich Curtis BIOTIN FORTE TABS BIOTIN TABS 26830555288 No Longer Active Altagracia Gretchen Curtis CLARITIN 10 MG TABS 1 po BID prn LORATADINE 36044679993 Active Altagracia Gretchen Curtis ZOSTAVAX 34948 UNT/0.65ML SOLR 1 injection once ZOSTER VACCINE LIVE 95596423622 No Longer Active Altagracia Gretchen Curtis VITAMIN D (ERGOCALCIFEROL) 42632 UNIT CAPS 1 PO daily ERGOCALCIFEROL 55669224174 No Longer Active Altagraciaerich Curtis VITAMIN D 1000 UNIT TABS 1 PO TID CHOLECALCIFEROL 78268979116 No Longer Active Atlagraciaerich Curtis SULFACETAMIDE-PREDNISOLONE 10-0.23 % SOLN Apply as directed as needed SULFACETAMIDE-PREDNISOLONE 14153357638 No Longer Active Altagracia Gretchen Curtis QUALAQUIN 324 MG CAPS 1 PO QHS prn QUININE SULFATE 34741649187 Active Altagracia Gretchen Curtis PREMARIN 0.625 MG/GM CREA 1 gm intavaginally HS 3 times a week. ESTROGENS, CONJUGATED VAGINAL 50723334092 No Longer Active Altagraciaerich Curtis FISH OIL 1000 MG CAPS 1 PO BID OMEGA-3 FATTY ACIDS 73524771782 Active Altagracia Gretchen Curtis LUCIEN 180 MG TABS 1 PO QD for sinus drainage FEXOFENADINE HCL 43584185569 No Longer Active Altagracia Gretchen Curtis YUE 1 PO TID YUE No Longer Active Altagraciaerich Curtis AMOXICILLIN 500 MG CAP 1 PO TID for seven days AMOXICILLIN 42212317572 No Longer Active Altagracia Gretchen Curtis QUININE SULFATE 260 MG TABS 1 PO QHS prn QUININE SULFATE 15969709633 No Longer Active Altagracia Gretchen Curtis ROBITUSSIN A-C 10-100 MG/5ML SYRUP 5cc PO Q 4-6 hr prn ROBITUSSIN A-C 10-100 MG/5ML SYRUP 31825336697 No Longer Active Altagracia Gretchen Curtis ZITHROMAX Z-DOMINCI 250 MG TABS as directed AZITHROMYCIN 30972596290 No Longer Active Altagracia Gretchen Curtis NAFTIN 1 % CREA APPLY TO AFFECTED AREAS BID FOR 7 DAYS NAFTIFINE HCL 12569887633 No Longer Active Altagracia Gretchen Curtis METFORMIN HCL 500 MG TABS 1 PO daily in morning for diabetes METFORMIN HCL 87412552058 Active Altagracia Gretchen Curtis LOTRISONE 1-0.05 % CREA apply to affected areas under arms BID for 7 days CLOTRIMAZOLE-BETAMETHASONE 79823403934 No Longer Active Altagracia Gretchen Curtis ATROVENT 0.03 % SOLN 2 puffs BID IPRATROPIUM BROMIDE 80247120709 No Longer Active Altagracia Gretchen Curtis HYDROXYZINE HCL 25 MG/ML SOLN 1 tab po prn HYDROXYZINE HCL 55528215324 No Longer Active Altagracia Gretchen Curtis MULTIVITAMINS TABS 1 po daily MULTIPLE VITAMIN 36521517630 No Longer Active Altagracia Gretchen Curtis HYDROCHLOROTHIAZIDE 12.5 MG CAPS 1 PO QD HYDROCHLOROTHIAZIDE 26694034475 Active Altagracia Gretchen Curtis NORVASC 5 MG TAB 1 PO QD AMLODIPINE BESYLATE 34937305858 No Longer Active Altagracia Gretchen Curtis CHLORPHENIRAMINE MALEATE 4 MG TABS 1 po q 4-6h prn CHLORPHENIRAMINE MALEATE 97666881751 No Longer Active Altagracia Gretchen Curtis ZITHROMAX Z-DOMINIC 250 MG TABS 2 po X 1 day, 1 po X 4 days AZITHROMYCIN 00007689050 No Longer Active Altagracia Gretchen Curtis ASPIRIN 81 MG TAB 1 PO daily ASPIRIN 19264071001 Active Altagraciaerich Curtis ZITHROMAX Z-DOMINIC 250 MG TABS 1 PO QD AZITHROMYCIN 38956499689 No Longer Active Altagracia Gretchen Curtis KENALOG 0.1 % CREA Apply to outside of ears sparingly bid x 7days TRIAMCINOLONE ACETONIDE (TOP) 30632091483 No Longer Active Altagraciaerich Curtis ALLERGY MEDICINE COMPLETE 25 MG CAPS prn DIPHENHYDRAMINE HCL 59639647780 No Longer Active Altagraciaerich Curtis NAPROXEN SODIUM 220 MG TABS 2 tabs prn NAPROXEN SODIUM 83312117094 No Longer Active Altagraciaerich Curtis PEDIOTIC 3.5-28794-6 SUSP Apply tid to bilateral ears x 7days [id number] (OTIC) 23698655483 No Longer Active Altagraciaerich Curtis COLACE ADULT 3 GM SUPP 3 gtts. each ear BID starting 06-19-04 GLYCERIN (LAXATIVE) 73996293827 No Longer Active Altagracia Curtis ATROVENT 0.03 % SOLUTION 2 puffs Qnostril BID prn runny nose 2003 IPRATROPIUM BROMIDE 90815991945 No Longer Active Altagraciaerich Curtis LOTRIMIN AF 1 % SOLN 2 drops each ear TID, alternate with pediotic drops. CLOTRIMAZOLE 47020467092 No Longer Active Altagraciaerich Curtis FLOXIN OTIC 0.3 % SOLN 10 drops BL ears BID OFLOXACIN 53697069712 No Longer Active Altagraciaerich Curtis LIPITOR 20 MG TABS 1 po daily ATORVASTATIN CALCIUM 41471427586 Active Altagracia Gretchen Curtis ROBITUSSIN A-C 10-100 MG/5ML SYRUP 5cc PO Q 4-6 hr prn ROBITUSSIN A-C 10-100 MG/5ML SYRUP 89708951108 No Longer Active Altagracia Curtis LIPITOR 20 MG TAB 1 PO QD ATORVASTATIN CALCIUM 21971453798 No Longer Active Altagracia Curtis ROBITUSSIN A-C 10-100 MG/5ML SYRUP 5cc PO Q 4-6 hr prn ROBITUSSIN A-C 10-100 MG/5ML SYRUP 78827154840 No Longer Active Altagracia Curtis LISINOPRIL 20 MG TABS 1 po daily LISINOPRIL 01885745189 Active Altagracia Godinez Curtis Immunizations Vaccine Administration [...] influenza B and Hepatitis B virus vaccine [facility] 07/11/06 Haemophilus influenzae type b conjugate and [...] automated count 0.5 % platelet count 215 627-428 5489/09/09 mean platelet volume 11.0 fL 9.5-12.9 Lab [...] 0.4 mg/dL 0.1-1.0 sodium, serum 134 mmol/L 188-055 0296/09/09 sodium, serum 139 mmol/L 957-759 6365/03/13 chloride, blood 105 mmol/L 96-108 chloride, blood 106 mmol/L 96-108 protein total, urine 6.3 GM/DL 6.1-8.2 bicarbonate, serum 27 mmol/L 18-30 bicarbonate, serum 25 mmol/L 18-30 Lab Report: CHEM 14 - Lab CREATININE 1.11 0.50-1.50 CREATININE 1.17 0.50-1.50 Lab Report: LIPID GRP - Chemistry HDL cholesterol, serum 40 mg/dL 40-125 cholesterol, serum 109 mg/dL 511-279 3787/09/09 cholesterol, serum 133 mg/dL 795-149 0507/03/13 HDL cholesterol, serum 34 mg/dL 40-125 triglyceride, [...] 0.300-5.000 Encounters Code Encounter Date Provider Facility CPT-42683 Ofc Vst, Est Level III 17:22:43 HAKANT Altagracia Curtis DO, FACP CPT-52976 Ofc Vst, Est Level III 21:06:52 CDT Altagracia Gretchen Hidalgo Curtis, DO, FACP CPT-53046 Ofc Vst, Est Level III 13:18:20 CDT Altagracia Gretchen Hidalgo Curtis, DO, FACP CPT-06071 Ofc Vst, Est Level IV 10:24:29 ECHOCARDIOLOGIST Altagracia Gretchen Hidalgo Curtis, DO, FACP CPT-07669 Ofc Vst, Est Level IV 10:26:18 CDT Altagracia Gretchen Hidalgo Kirsten, DO, FACP CPT-85833 Ofc Vst, Est Level IV 10:35:37 CDT Altagracia Hidalgo Kirsten, DO, FACP CPT-32947 Ofc Vst, Est Level IV 10:04:20 ECHOCARDIOLOGIST Altagraciaerich Hidalgo Kirsten, DO, FACP CPT-18853 Ofc Vst, Est Level III 10:53:00 CDT Altagracia Gretchen Hidalgo Kirsten, DO, FACP CPT-91085 Ofc Vst, Est Level IV 10:46:01 CDT Altagraciaerich Hidalgo Curtis, DO, FACP CPT-15033 Ofc Vst, Est Level IV 10:09:53 CDT Altagraciaerich Hidalgo Kirsten, DO, FACP CPT-18781 Ofc Vst, Est Level IV 09:41:45 ECHOCARDIOLOGIST Altagracia Hidalgo Curtis, DO, FACP CPT-30230 Ofc Vst, Est Level IV 09:47:44 ECHOCARDIOLOGIST Altagracia Hidalgo Curtis, DO, FACP CPT-39868 Ofc Vst, Est Level IV 09:30:07 CDT Altagracia Gretchen Hidalgo Kirsten, DO, FACP CPT-79856 Ofc Vst, Est Level IV 09:32:54 CDT Altagracia Gretchen Barnesner Altagracia Hidalgo Kirsten, DO, FACP CPT-29838 Ofc Vst, Est Level IV 09:18:37 ECHOCARDIOLOGIST Altagraciaerich Hidalgo Kirsten, DO, FACP CPT-38872 Ofc Vst, Est Level IV 18:10:48 CDT Altagracia Gretchen Branesner Altagracia Hidalgo Kirsten, DO, FACP CPT-26030 Ofc Vst, Est Level IV 09:28:24 CDT Altagracai Gretchen Barnesner Altagracia Gwen Kirsten, DO, FACP CPT-57430 Ofc Vst, Est Level IV 09:21:14 CDT Altagracia Gretchen Barnesner Altagracia Hidalgo Kirsten, DO, FACP CPT-14479 Ofc Vst, Est Level IV 09:26:33 ECHOCARDIOLOGIST Altagracia Gretchen Kirsten Altagracia Hidalgo Kirsten, DO, FACP CPT-01080 Ofc Vst, Est Level III 10:53:25 ECHOCARDIOLOGIST Altagracia Gretchen Curtis Altagracia Gwen Kirsten, DO, FACP CPT-70514 Ofc Vst, Est Level IV 09:44:53 CDT Altagracia Gretchen Barnesner Altagracia Gwen Kirsten, DO, FACP CPT-55506 Ofc Vst, Est Level IV 10:32:41 CDT Altagracia Gretchen Kirsten Altagraciaerich Curtis, DO, FACP CPT-54594 Ofc Vst, Est Level IV 10:29:10 CDT Altagraciaerich Curtis [facility] [place] CPT-68717 Ofc Vst, Est Level III 14:16:27 CDT Altagracia Curtis [facility] [place] CPT-50198 Ofc Vst, Est Level IV 09:44:19 ECHOCARDIOLOGIST Altagracia Curtis [facility] [place] CPT-67548 Ofc Vst, Est Level IV 10:04:08 CDT Altagraciaerich Curtis [facility] [place] CPT-83776 Ofc Vst, Est Level V 10:07:33 CDT Altagracia Gretchen Curtis [facility] [place] CPT-22418 Ofc Vst, Est Level IV 09:40:48 CDT Altagracia Gretchen Curtis [facility] [place] CPT-25824 Ofc Vst, Est Level IV 09:22:54 ECHOCARDIOLOGIST Altagracia Gretchen Curtis [facility] [place] CPT-51634 Ofc Vst, Est Level II 13:41:04 CDT Altagracia Gretchen Curtis [facility] [place] CPT-20513 Ofc Vst, Est Level IV 09:30:47 CDT Altagracia Gretchen Curtis [facility] [place] CPT-09036 Ofc Vst, Est Level IV 09:46:53 CDT Altagracia Gretchen Curtis [facility] [place] CPT-54743 Ofc Vst, Est Level IV 19:17:23 ECHOCARDIOLOGIST Altagracia Curtis [facility] [place] CPT-12294 Ofc Vst, Est Level IV 12:54:11 ECHOCARDIOLOGIST Altagracia Curtis [facility] [place] CPT-65513 Ofc Vst, Est Level IV 18:43:33 CDT Atlagracia Gretchen Curtis [facility] [place] CPT-00790 Ofc Vst, Est Level III 12:15:26 CDT Altagracia Gretchen Curtis [facility] [place] CPT-77927 Ofc Vst, Est Level III 11:56:15 ECHOCARDIOLOGIST Altagracia Curtis [facility] [place] CPT-75396 Ofc Vst, Est Level III 15:33:37 ECHOCARDIOLOGIST Altagracia Curtis [facility] [place] CPT-05979 Ofc Vst, New Level III 11:21:25 ECHOCARDIOLOGIST Altagracia Curtis [facility] [place] Procedures Code Procedure Name Date Entry Date Standard Description CPT-G0439 Medicare Annual Wellness Visit 16:08:58 CDT CPT-G8446 E-Prescribing not done due to controlled substance 21:06 :52 CDT CPT-G8446 E-Prescribing not done due to controlled substance 13:19 :45 CDT CPT-G0439 Medicare Annual Wellness Visit 13:19:45 CDT CPT-G8446 E-Prescribing not done due to controlled substance 13:18 :20 CDT CPT-G0439 Medicare Annual Wellness Visit 10:53:22 CDT CPT-66332 Ear Wax Removal 18:43:33 CDT
== END 2018-11-29 11:36 | disposition home or self-care (01) ==
LOC: EDUNIT# 09:33 → ER 09:35
DX: K13.70 Unspecified lesions of oral mucosa (principal)
CPT/HCPCS: 99282

== ENCOUNTER → 2019-05-15 | Outpatient (CLI) | payer MEDICARE, OTHER ==
[~2019-05-15] MED LIST changes: +CHLO473M4 MM
== END ==
LOC: WOUNDCARE 09:13
PROVIDERS: ATTEND Surgery
DX: L89.153 Pressure ulcer of sacral region, stage 3 (principal); L98.492 Non-pressure chronic ulcer of skin of other sites with fat layer exposed; T81.31XA Disruption of external operation (surgical) wound, not elsewhere classified, initial encounter; C06.9 Malignant neoplasm of mouth, unspecified; E11.36 Type 2 diabetes mellitus with diabetic cataract; E11.39 Type 2 diabetes mellitus with other diabetic ophthalmic complication; H40.9 Unspecified glaucoma; H42 Glaucoma in diseases classified elsewhere; I10 Essential (primary) hypertension
CPT/HCPCS: 99214

== ENCOUNTER → 2019-05-19 | Outpatient (CLI) | payer MEDICARE, OTHER | LOC: WOUNDCARE 13:18 | PROVIDERS: ATTEND Surgery | DX: L89.153 Pressure ulcer of sacral region, stage 3 (principal); L98.492 Non-pressure chronic ulcer of skin of other sites with fat layer exposed; I96 Gangrene, not elsewhere classified; T81.31XA Disruption of external operation (surgical) wound, not elsewhere classified, initial encounter; C06.0 Malignant neoplasm of cheek mucosa | CPT/HCPCS: 11042 ==

== ENCOUNTER → 2019-05-25 | Outpatient (CLI) | payer MEDICARE, OTHER | LOC: WOUNDCARE 14:46 | PROVIDERS: ATTEND Surgery | DX: L89.153 Pressure ulcer of sacral region, stage 3 (principal); L98.492 Non-pressure chronic ulcer of skin of other sites with fat layer exposed; T81.31XA Disruption of external operation (surgical) wound, not elsewhere classified, initial encounter; C06.0 Malignant neoplasm of cheek mucosa; I96 Gangrene, not elsewhere classified | CPT/HCPCS: 11042 ==

== ENCOUNTER → 2019-06-08 | Outpatient (CLI) | payer OTHER | LOC: WOUNDCARE 14:31 | PROVIDERS: ATTEND Surgery | DX: L89.153 Pressure ulcer of sacral region, stage 3 (principal); C06.0 Malignant neoplasm of cheek mucosa | CPT/HCPCS: 11042 ==

== ENCOUNTER → 2019-06-15 | Outpatient (CLI) | payer OTHER | LOC: WOUNDCARE 15:03 | PROVIDERS: ATTEND Surgery | DX: L89.153 Pressure ulcer of sacral region, stage 3 (principal); C06.0 Malignant neoplasm of cheek mucosa; I96 Gangrene, not elsewhere classified | CPT/HCPCS: 99212 ==

== ENCOUNTER → 2019-06-24 | Outpatient (CLI) | payer OTHER | LOC: WOUNDCARE 10:03 | PROVIDERS: ATTEND Surgery | DX: L89.153 Pressure ulcer of sacral region, stage 3 (principal); C06.0 Malignant neoplasm of cheek mucosa | CPT/HCPCS: 99212 ==

== ENCOUNTER 2019-09-30 15:51 | Emergency (ER) | payer MEDICARE, OTHER ==
[~2019-09-30] VITALS: Ht 162 cm; Wt 57.0 kg
--- NOTE | 2019-09-30 16:15 | NUR ---
SEE LIST FOR CURRENT MEDS
--- NOTE | 2019-09-30 17:25 | ED General ---
General Chief Complaint: Dizziness/Syncope Stated Complaint: DIZZINESS,GENERAL WEAKNESS Source of Information: Patient, Family ([id number]) Exam Limitations: No Limitations History of Present Illness Date Seen by Provider: Sep 30, 2019 Time Seen by Provider: 17:05 Initial Comments Patient presents to ER by private conveyance with chief complaint she's been having dizziness starting this morning after getting up from laying down. She's had no fevers or chills. She did notice for the past 6 months she's been having black stools. She does not take his medicine, iron. She had a history of being anemic before but not recently. She is followed by Dr. Rosen. She has a history of diabetes. Her sugars of been fine. She denies any chest pain shortness of breath fever chills nausea vomiting diarrhea. She says when she gets very dizzy though she'll become nauseated. She's having some pressure in her left ear. She wears hearing aids bilaterally followed by Dr. Honrer. She's had to recently change hearing aids and she is having some minor pain in her left ear but no discharge. No nasal discharge but she is having some minor congestion. She does not use nasal steroids. Allergies and Home Medications Allergies Coded Allergies: No Known Drug Allergies (Unverified , 11/29/18) Home Medications Chlorhexidine Gluconate 473 Ml Mouthwash, 30 ML MM BID Prescribed by: BRAYDEN GOLD on 11/29/18 1125 Hydrocodone Bit/Acetaminophen 1 Tab Tablet, 1 TAB PO Q6H FOR PAIN Prescribed by: SIDNEY JAMES on 11/30/11 2136 [place] 3 Polyunsat Fatty Acids 1,000 Mg Cap, 1,000 MG PO BID, (Reported) Patient Home Medication List Home Medication List Reviewed: Yes Review of Systems Review of Systems Constitutional: No chills; dizziness; No fever, No malaise EENTM: see HPI, ear pain; No ear discharge Respiratory: No cough, No dyspnea on exertion Cardiovascular: No chest pain, No edema, No palpitations Gastrointestinal: see HPI; No abdominal pain, No constipation, No diarrhea; melena; No nausea Genitourinary: No discharge, No dysuria Musculoskeletal: No back pain, No joint pain Hematologic/Lymphatic: Denies Anemia, Denies Blood Clots Past Ywveauc-Motjdw-Pmrlrm Hx Patient Social History Alcohol Use: Denies Use Recreational Drug Use: No Smoking Status: Never a Smoker Recent Hopitalizations: No Physical Abuse: No Sexual Abuse: No Immunizations Up To Date Date of Pneumonia Vaccine: Jul 31, 2011 Date of Influenza Vaccine: Jul 31, 2011 Seasonal Allergies Seasonal Allergies: No Past Medical History Surgeries: Yes (MOUTH SURG) Respiratory: No Cardiac: Yes Hypertension Neurological: No Genitourinary: No Gastrointestinal: No Musculoskeletal: No Endocrine: Yes Diabetes, Non-Insulin dep HEENT: Yes 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 oz. 58.718315mj; BMI Method:Stated General Appearance: No Apparent Distress, WD/WN Eyes: Bilateral Eye Normal Inspection, Bilateral Eye PERRL, Bilateral Eye EOMI HEENT: PERRL/EOMI, Normal ENT Inspection, Pharynx Normal, Moist Mucous Membranes, TM Abnormal (L) (Bilateral clear, mucoid effusion without erythema or injection), TM Abnormal (R) Neck: Full Range of Motion, Normal Inspection, Non Tender, Supple Respiratory: Lungs Clear, Normal Breath Sounds, No Accessory Muscle Use, No Respiratory Distress Cardiovascular: Regular Rate, Rhythm, No Edema, No Gallop, No JVD Extremity: Normal Capillary Refill, Normal Inspection, No Pedal Edema Neurologic/Psychiatric: Alert, Oriented x3, No Motor/Sensory Deficits, Normal Mood/Affect, drying oven tender II-XII Norm as Tested, Other (Head impulse test normal. Negative for horizontal nystagmus. Normal test of skew. Normal gait. [place]- Hallpike unable to reproduce symptoms) Skin: Normal Color, Warm/Dry Progress/Results/Core Measures Suspected Sepsis SIRS Temperature: Pulse: Respiratory Rate: Laboratory Tests 09/30/19 16:20: White Blood Count 6.5 Blood Pressure / Mean: Laboratory Tests 09/30/19 16:20: Creatinine 1.31H, Platelet Count 214, Total Bilirubin 0.4 Results/Orders Lab Results Laboratory Tests Test 09/30/19 16:20 Range/Units White Blood Count 6.5 4.3-11.0 10^3/uL Red Blood Count 4.05 L 4.35-5.85 10^6/uL Hemoglobin 11.7 11.5-16.0 G/DL Hematocrit 34 L 35-52 % Mean Corpuscular Volume 85 80-99 FL Mean Corpuscular Hemoglobin 29 25-34 PG Mean Corpuscular Hemoglobin Concent 34 32-36 G/DL Red Cell Distribution Width 15.3 H 10.0-14.5 % Platelet Count 214 130-400 10^3/uL Mean Platelet Volume 10.8 H 7.4-10.4 FL Neutrophils (%) (Auto) 74 42-75 % Lymphocytes (%) (Auto) 17 12-44 % Monocytes (%) (Auto) 6 0-12 % Eosinophils (%) (Auto) 2 0-10 % Basophils (%) (Auto) 0 0-10 % Neutrophils # (Auto) 4.9 1.8-7.8 X 10^3 Lymphocytes # (Auto) 1.1 1.0-4.0 X 10^3 Monocytes # (Auto) 0.4 0.0-1.0 X 10^3 Eosinophils # (Auto) 0.1 0.0-0.3 10^3/uL Basophils # (Auto) 0.0 0.0-0.1 10^3/uL Sodium Level 133 L 135-145 MMOL/L Potassium Level 4.3 3.6-5.0 MMOL/L Chloride Level 103 98-107 MMOL/L Carbon Dioxide Level 19 L 21-32 MMOL/L Anion Gap 11 5-14 MMOL/L Blood Urea Nitrogen 17 7-18 MG/DL Creatinine 1.31 H 0.60-1.30 MG/DL Estimat Glomerular Filtration Rate 38 BUN/Creatinine Ratio 13 Glucose Level 122 H 70-105 MG/DL Calcium Level 9.8 8.5-10.1 MG/DL Corrected Calcium 9.7 8.5-10.1 MG/DL Total Bilirubin 0.4 0.1-1.0 MG/DL Aspartate Amino Transf (AST/SGOT) 16 5-34 U/L Alanine Aminotransferase (ALT/SGPT) 11 0-55 U/L Alkaline Phosphatase 80 40-136 U/L Total Protein 6.7 6.4-8.2 GM/DL Albumin 4.1 3.2-4.5 GM/DL My Orders Orders - TEQUILA BELCHER Occult Blood Stool (1/1/20 17:21) Cbc With Automated Diff (09/30/19 17:21) Comprehensive Metabolic Panel (09/30/19 17:21) Ed Iv/Invasive Line Start (09/30/19 17:21) Ekg Tracing (09/30/19 17:21) Continuous Ekg Monitoring (09/30/19 17:21) Vital Signs/I&O 09/30/19 16:10 Temp 36.4 Pulse 80 Resp 18 B/P (MAP) 154/72 (99) Pulse Ox 100 Capillary Refill : Progress Note : Time: 18:08 Progress Note Fecal occult blood test on her stool is negative. We'll have her follow-up with primary care. Her hemoglobin is normal. Her labs are largely unremarkable. I suspect she is having labyrinthitis and she has some pressure in her left ear with clear mucoid effusion and we plan to put her on nasal steroid. She can follow-up with primary care or ENT if this is unsuccessful in 2 weeks. Ondansetron if she gets nausea. We'll hold off on meclizine given her age and its rather poor efficacy. Departure Impression Primary Impression: Vertigo Additional Impression: Labyrinthitis, left ear Disposition: 01 HOME, SELF-CARE Condition: Stable Departure-Patient Inst. Decision time for Depature: 18:09 Referrals: HARRISON ROSEN DO (PCP/Family) Primary Care Physician Patient Instructions: Vertigo (a Type of Dizziness) (DC), Labyrinthitis Add. Discharge Instructions: Drink plenty of fluids and use humidifiers and vapor rubs. Flonase/fluticasone or Rhinocort/budesonide and puff each nostril daily for the next 1-2 weeks until your symptoms resolve. If your symptoms persist you can follow-up with ENT or your primary care provider to discuss more potent steroids or further workup. Your blood counts were normal and there was no blood detected in your stool so the discoloration must be from some other benign reason. If you become nauseated from the dizziness then you may take one tablet of Zofran every 6 hours as needed. All discharge instructions reviewed with patient and/or family. Voiced understanding. Scripts Ondansetron (Ondansetron Odt) 4 Mg Tab.rapdis 4 MG PO Q6H PRN for NAUSEA/VOMITING, #8 TAB 0 Refills Prov: TEQUILA BELCHER 09/30/19 TEQUILA BELCHER Sep 30, 2019 17:25
[2019-09-30 17:27] LABS: BASOPHILS % (AUTO) 0 % (0-10); EOSINOPHILS # (AUTO) 0.1 10^3/uL (0.0-0.3); EOSINOPHILS % (AUTO) 2 % (0-10); HEMATOCRIT 34 % (35-52); HEMOGLOBIN 11.7 G/DL (11.5-16.0); LYMPHOCYTES # (AUTO) 1.1 X 10^3 (1.0-4.0); LYMPHOCYTES % (AUTO) 17 % (12-44); MEAN CORPUSCULAR HEMOGLOBIN 29 PG (25-34); MEAN CORPUSCULAR HGB CONC 34 G/DL (32-36); MEAN CORPUSCULAR VOLUME 85 FL (80-99); MEAN PLATELET VOLUME 10.8 FL (7.4-10.4); MONOCYTES # (AUTO) 0.4 X 10^3 (0.0-1.0); MONOCYTES % (AUTO) 6 % (0-12); NEUTROPHILS # (AUTO) 4.9 X 10^3 (1.8-7.8); NEUTROPHILS % (AUTO) 74 % (42-75); PLATELET COUNT 214 10^3/uL (130-400); RED CELL DISTRIBUTION WIDTH 15.3 % (10.0-14.5); WHITE BLOOD COUNT 6.5 10^3/uL (4.3-11.0)
[2019-09-30 17:41] LABS: ALBUMIN 4.1 GM/DL (3.2-4.5); BILIRUBIN,TOTAL 0.4 MG/DL (0.1-1.0); CALCIUM 9.8 MG/DL (8.5-10.1); CREATININE SERUM 1.31 MG/DL (0.60-1.30); POTASSIUM 4.3 MMOL/L (3.6-5.0); TOTAL PROTEIN 6.7 GM/DL (6.4-8.2)
[2019-09-30] MEDS ORDERED: ONDA4TAB11 PO (18:12)
[2019-09-30 18:46] VITALS: BP 154/67
== END 2019-09-30 18:46 | disposition home or self-care (01) ==
LOC: EDUNIT# 15:51 → ER 15:52
DX: H83.02 Labyrinthitis, left ear (principal); E11.9 Type 2 diabetes mellitus without complications; I10 Essential (primary) hypertension
CPT/HCPCS: 36415; 80053; 85025; 93005

== ENCOUNTER 2019-11-27 22:27 | Emergency (ER) | payer MEDICARE ==
[~2019-11-27] VITALS: Ht 162.6 cm; Wt 59.0 kg
[~2019-11-27 22:27] MED LIST changes: +ONDA4TAB11 PO
[2019-11-27] MEDS ORDERED: CEPH-507 PO (22:40)
--- NOTE | 2019-11-27 22:40 | ED Upper Extremity ---
General Stated Complaint: FELL Source: patient Exam Limitations: no limitations History of Present Illness Date Seen by Provider: Nov 27, 2019 Time Seen by Provider: 22:37 Initial Comments To ER with a laceration to the dorsal aspect proximal left forearm[place] Onset: just prior to arrival Severity: moderate Pain/Injury Location: left forearm Method of Injury: fell Allergies and Home Medications Allergies Coded Allergies: No Known Drug Allergies (Unverified , 11/29/18) Home Medications Cephalexin 500 Mg Capsule, 500 MG PO TID Prescribed by: BRAYDEN GOLD on 11/27/19 2240 Chlorhexidine Gluconate 473 Ml Mouthwash, 30 ML MM BID Prescribed by: BRAYDEN GOLD on 11/29/18 1125 Hydrocodone Bit/Acetaminophen 1 Tab Tablet, 1 TAB PO Q6H FOR PAIN Prescribed by: SIDNEY JAMES on 11/30/11 2136 [place] 3 Polyunsat Fatty Acids 1,000 Mg Cap, 1,000 MG PO BID, (Reported) Ondansetron 4 Mg Tab.rapdis, 4 MG PO Q6H PRN for NAUSEA/VOMITING Prescribed by: TEQUILA BELCHER on 09/30/19 1812 Patient Home Medication List Home Medication List Reviewed: Yes Review of Systems Constitutional: see HPI EENTM: see HPI Respiratory: no symptoms reported Cardiovascular: no symptoms reported Genitourinary: no symptoms reported Musculoskeletal: see HPI Skin: see HPI Psychiatric/Neurological: No Symptoms Reported Past Ruxsnhc-Ybhgar-Qmgfpe Hx Patient Social History Recent Foreign Travel: No Contact w/Someone Who Travel: No Recent Hopitalizations: No Immunizations Up To Date Date of Pneumonia Vaccine: Jul 31, 2011 Date of Influenza Vaccine: Jul 31, 2011 Seasonal Allergies Seasonal Allergies: No Past Medical History Surgeries: Yes (MOUTH SURG) Respiratory: No Cardiac: Yes Hypertension Neurological: No Genitourinary: No Gastrointestinal: No Musculoskeletal: No Endocrine: Yes Diabetes, Non-Insulin dep HEENT: Yes 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 oz. 58.551607ne; 21.00 BMI Method:Stated General Appearance: WD/WN, no apparent distress HEENT: PERRL/EOMI, normal ENT inspection Respiratory: no respiratory distress, no accessory muscle use Gastrointestinal: normal bowel sounds, non tender Shoulder: normal inspection, non-tender Elbow/Forearm: Left (skin avulsion of a small area down to the muscle fascia dorsal aspect proximal forearm left side, this will require some loose primary closure after irrigation because it was gaping by about 1-2 cm) Hand: normal inspection, non-tender Neurologic/Psychiatric: alert, normal mood/affect, oriented x 3 Skin: normal color, warm/dry Procedures/Interventions Wound Length (cm): 3 Wound's Depth, Shape: linear Wound Explored: clean Irrigated w/ Saline (ccs): 250 Anesthesia: 1% Lidocaine Suture: Prolene Suture Size: 4-0 Number of Sutures: 3 Layer Closure?: 1 Number Deep Layer Sutures: 0 Progress/Results/Core Measures Results/Orders My Orders Orders - BRAYDEN GOLD APRN Dipht,Pertuss(Acell),Tet Adult (Boostrix (11/27/19 22:45) Cephalexin Capsule (Keflex Capsule) (11/27/19 22:45) Departure Impression Primary Impression: Forearm laceration Qualified Codes: S51.812A - Laceration without foreign body of left forearm, initial encounter Disposition: HOME, SELF-CARE Condition: Stable Departure-Patient Inst. Referrals: HARRISON ROESN DO (PCP/Family) Primary Care Physician Patient Instructions: Laceration Repair With Stitches (DC) Add. Discharge Instructions: Return to ER in 10 days to have the stitches removed. You can shower allowing water run over this starting tomorrow but do not soak this in water such as a hot tub bath tub or swimming pool until stitches of been removed. Take antibiotics as directed. Scripts Cephalexin (Keflex) 500 Mg Capsule 500 MG PO TID, #15 CAP Prov: BRAYDEN GOLD APRN 11/27/19 BRAYDEN GOLD APRN Nov 27, 2019 22:40
[2019-11-27] MEDS ORDERED: CEPHALEXIN 250 MG (KEFLEX) CAP PO ONE (22:45)
[2019-11-27] MEDS ORDERED: TETANUS,DIPTH,PERTUSS P/F (BOOSTRIX) 0.5 ML VIAL IM ONE (22:45)
[2019-11-27 23:00] VITALS: BP 142/58
== END 2019-11-27 23:00 | disposition home or self-care (01) ==
LOC: EDUNIT# 22:27 → ER 22:28
DX: S51.812A Laceration without foreign body of left forearm, initial encounter (principal); Z23 Encounter for immunization; W19.XXXA Unspecified fall, initial encounter; Y92.59 Other trade areas as the place of occurrence of the external cause
CPT/HCPCS: 12002; 90715

== ENCOUNTER 2019-12-07 07:46 | Emergency (ER) | payer MEDICARE ==
[~2019-12-07] VITALS: Ht 162.5 cm; Wt 58.3 kg
[~2019-12-07 07:46] MED LIST changes: +CEPH-507 PO
[2019-12-07 08:13] VITALS: BP 133/67
--- OUTSIDE RECORDS SUMMARY | 2019-12-09 14:44 | XMS REPORT | Continuity of Care Document ---
Author Organization Unknown Address Unknown Phone Unavailable Allergies There is no data. Medications There is no data. Problems There is no data. Procedures There is no data. Results Test Result Range Thyroid Stimulating Hormone - 05/26/19 1 1:10 TSH 2.04 mIU/mL 0.32-5.00 Encounters ACCT No. Visit Date/Time Discharge Status Pt. Type Provider Facility Loc./Unit Complaint [id number] 05/26/2019 11:55:00 05/26/2019 23:59: 00 DIS Outpatient Altagracia Curtis
== END 2019-12-07 08:17 | disposition home or self-care (01) ==
LOC: EDUNIT# 07:46 → ER 07:47
DX: S41.112D Laceration without foreign body of left upper arm, subsequent encounter (principal); X58.XXXD Exposure to other specified factors, subsequent encounter